=== PATIENT | female | born 1960 | race Caucasian/White ===

== ENCOUNTER → 2016-12-10 | Outpatient (CLI) | payer BC ==
--- NOTE | 2016-12-10 13:27 | CTL ---
EXAMINATION TYPE: CT Low Dose Lung DATE OF EXAM ORDERED: 12/10/2016 HISTORY: 56-year-old female for lung cancer screening CT DLP: 79.[address] CTDI: 2.4 mGy Automated exposure control for dose reduction was used. SCREENING VISIT: Baseline COMPARISON: None TECHNIQUE: Low dose computed tomography scan was performed through the chest at 1 mm thick sections a nd reconstructed images in the coronal plane at [address] DIAGNOSTIC QUALITY: Satisfactory FINDINGS: The heart is upper limits of normal in size without pericardial effusion. Aorta is normal caliber. There may be variant direct takeoff of the left vertebral artery directly fr om the aortic arch. Scattered nonenlarged mediastinal lymph nodes. No thoracic lymphadenopathy by CT size criteria. Evaluation of the lungs shows mild centrilobular emphysema. There is a tiny 3 mm right midlung pulmonary nodule axial image 142. A band of atelectasis at the left base. No consolidation or pleural effusion. Visualized upper abdomen shows no gross abnormalities. Bones: Endplate spondylosis mid to lower thoracic spine. There is a sclerotic focus within the left p osterolateral left fifth rib, axial image 68 and possibly some cortical lucencies within the right po sterior fifth rib, axial image 76. IMPRESSION: 1. Lung- RADS 2 - benign appearance or behavior; solitary 3 mm right mid lung pulmonary nodule. 2. COPD with mild emphysema. 3. Sclerotic focus within the left posterior fifth rib. In the absence of any known primary malignanc y, this most likely represents a bone island. Consider nuclear medicine whole body bone scan to surve y the entire skeleton if clinically indicated. RECOMMENDATION: CONTINUE ANNUAL SCREENING WITH LOW-DOSE CT IN 12 MONTHS.
== END | disposition home or self-care (01) ==
LOC: RADCTMAIN 12:17
PROVIDERS: ATTEND Family Medicine
DX: Z12.2 Encounter for screening for malignant neoplasm of respiratory organs (principal); R91.1 Solitary pulmonary nodule; J44.9 Chronic obstructive pulmonary disease, unspecified; Z87.891 Personal history of nicotine dependence

== ENCOUNTER → 2018-02-13 | Outpatient (CLI) | payer BC ==
--- NOTE | 2018-02-13 12:47 | CTL ---
EXAMINATION TYPE: CT Low Dose Lung DATE OF EXAM ORDERED: 02/13/2018 HISTORY: Long-term tobacco use. Lung cancer screening CT DLP: 83.[address] CTDI: 2.4 mGy Automated exposure control for dose reduction was used. SCREENING VISIT: Subsequent second study. COMPARISON: Prior low-dose lung screening CT December 10, 2016 TECHNIQUE: Low dose computed tomography scan was performed through the chest at 1 mm thick sections a nd reconstructed images in the coronal plane at [address] DIAGNOSTIC QUALITY: Satisfactory FINDINGS: LUNG NODULES: None. Stable 2 mm calcified nodule or granuloma axial image 144 LUNGS: COPD: Severity: Mild Fibrosis: Severity: Mild linear scarring left lung base Lymph nodes: None Other findings: None BILATERAL PLEURAL SPACE: Effusion: None Calcification: None Thickening: None Pneumothorax: None HEART: Heart Size: Mildly enlarged Coronary calcification: None Pericardial effusion: Trace OTHER FINDINGS: Upper abdomen: Liver is low dense consistent with diffuse fatty infiltration Bony thorax: Moderate multilevel spurring lower thoracic spine is redemonstrated. Sclerotic area left posterior lateral fifth rib remains present seen best coronal image 186 Supraclavicular region: None Other: None IMPRESSION: No new suspicious nodules or masses. FOLLOW UP CT CHEST RECOMMENDATION: Annual low-dose lung screening CT CT LUNG RAD: Lung-Rad 2 Benign Appearance or Behavior
== END | disposition home or self-care (01) ==
LOC: RADCTMAIN 10:46
PROVIDERS: ATTEND Family Medicine
DX: Z12.2 Encounter for screening for malignant neoplasm of respiratory organs (principal); F17.210 Nicotine dependence, cigarettes, uncomplicated

== ENCOUNTER → 2021-03-27 | Outpatient (CLI) | payer BC ==
--- NOTE | 2021-03-28 22:55 | PE ---
EXAMINATION TYPE: PET CT fusion skull to thigh DATE OF EXAM: 03/27/2021 COMPARISON: Low-dose lung screening CT February 13, 2018 HISTORY: Solitary pulmonary nodule, right lingular density measuring 1.6 cm. TECHNIQUE: Following the intravenous administration of 10.78 mCi of F-18 FDG, whole body images are performed from the skull base to the midthigh. Images are reviewed on the computer in the coronal, a xial, and sagittal planes. Reconstructed rotating images are created on independent workstation and reviewed on the computer. A localization and attenuation correction CT is performed in conjunction with the PET scan. Blood glucose level equals 136. SCAN: Initial Scan FINDINGS: SKULL BASE AND NECK: No abnormal hypermetabolic uptake. CHEST, MEDIASTINUM, AND HILAR REGION: Mild linear scarring slightly thickened in the lingula and left lower lobe redemonstrated. No abnormal hypermetabolic uptake ABDOMEN AND PELVIS: Nonspecific diffuse bowel uptake greatest throughout the colon. Normal excretion. No adrenal masses. No additional areas of increased hypermetabolic uptake OSSEOUS STRUCTURES: Mild hypermetabolic uptake posterior left rib axial image 83, max SUV 2.76. This corresponds to subtle sclerotic round 1.0 cm lesion in the fifth rib on CT. OTHER CT: Mild cardiomegaly with prominent pulmonary arteries suggesting underlying pulmonary hyperte nsion. Low lung volumes. Dependent small gallstones in gallbladder. [id number] generalized fat replaced atrophy of the p ancreas. Sigmoid colonic diverticulosis. IMPRESSION: No suspicious hypermetabolic uptake in the lungs to suggest primary lung malignancy. Mild hypermetabolic uptake corresponding to 1.0 cm round sclerotic focus left posterior fifth rib could r eflect primary bone lesion or osseous metastatic lesion.
== END | disposition home or self-care (01) ==
LOC: RADPETMAIN 15:35
PROVIDERS: ATTEND Family Medicine
DX: R91.8 Other nonspecific abnormal finding of lung field (principal)
CPT/HCPCS: 78815; A9552

== ENCOUNTER → 2022-04-15 | Outpatient (CLI) | payer MEDICARE ==
--- NOTE | 2022-04-15 17:07 | CTL ---
EXAMINATION TYPE: CT Low Dose Lung DATE OF EXAM: 04/15/2022 4:44 PM CLINICAL INDICATION:Female, 61 years old with history of Z87.891 personal hx nicotine dependence; Per mick hx tobacco use, 1 pk/dayx45 years. Not reporting any concerns , history of tobacco use. COMPARISON: CT 02/13/2018, PET/CT 03/27/2021 TECHNIQUE: Multiple axial non-contrast scans were obtained from approximately the lung apices through the upper abdomen. Coronal and sagittal reformatted images were obtained. Low dose technique was uti lized. CT DLP: 91.50 mGycm, Automated exposure control for dose reduction was used. CT Contrast: Contrast used: None Oral contrast used: None FINDINGS: ======== Lack of intravenous contrast and low dose technique limits the evaluation of the vascular and soft ti ssue structures. LUNGS: No evidence of emphysema or pulmonary fibrosis. No evidence of focal consolidation, pneumothor ax or pleural effusion. Scattered streaky scarring/atelectasis. Nodules: RUL: None. RML: None. RLL: None. RAFAEL: None. LLL: None. AIRWAY: Patent and unremarkable. HEART: The heart is mildly enlarged for size.e MEDIASTINUM: No gross evidence of adenopathy. VASCULATURE: No aortic aneurysm. MUSCULOSKELETAL: There remains a sclerotic focus measuring 13 mm in the left posterior rib #5 is stab le from 03/27/2021 PET/CT. SOFT TISSUES/LYMPH NODES: Unremarkable. LOWER NECK: No significant findings. UPPER ABDOMEN: Diffuse low-attenuation to the liver parenchyma. IMPRESSION: 1. No clinically significant pulmonary nodules. Stable left lung streaky atelectasis/scarring. 2. Stable size of left posterior rib sclerotic lesion now measuring 13 mm. Given stability over a yea r an indolent etiologies is favored. 3. Hepatic steatosis. CT LUNG RAD AND CT CHEST RECOMMENDATION: Lung-Rad 1 Negative: Continue annual screening with LDCT in 12 months. S Modifier (other clinically significant findings): None Recommend smoking cessation (if current smoker), or continuation of smoking cessation (if prior smoke r). Annual screening for lung cancer with low-dose computed tomography is recommended in adults ages 55 to 77 years who have a 30 pack-year smoking history and currently smoke or have quit within the pa st 15 years. Screening should be discontinued once a person has not smoked for 15 years or develops a health problem that substantially limits life expectancy or the ability or willingness to have curat opal lung surgery. Lung rads 2021 [email or web address]
== END | disposition home or self-care (01) ==
LOC: RADCTMAIN 16:09
PROVIDERS: ATTEND Family Medicine
DX: Z12.2 Encounter for screening for malignant neoplasm of respiratory organs (principal); K76.0 Fatty (change of) liver, not elsewhere classified; M89.8X8 Other specified disorders of bone, other site; Z87.891 Personal history of nicotine dependence
CPT/HCPCS: 71271

== ENCOUNTER → 2022-12-28 | Outpatient (CLI) | payer MEDICARE ==
--- NOTE | 2022-12-28 08:07 | US ---
EXAMINATION TYPE: US kidneys/renal and bladder DATE OF EXAM: 12/28/2022 COMPARISON: US 2022 CLINICAL INDICATION: Female, 62 years old with history of N18.1 CHRONIC KIDNEY DISEASE, STAGE 1; EXAM MEASUREMENTS: Right Kidney: 10.9 x 5.2 x 5.7 cm Left Kidney: 12.3 x 5.5 x 5.1 cm Right Kidney: no hydronephrosis or masses seen Left Kidney: no hydronephrosis or masses seen Bladder: wnl Bilateral Jets seen: no There is no evidence for hydronephrosis at this point in time. No nephrolithiasis is seen. No tristan s are identified. The urinary bladder is anechoic. Bilateral ureteral jets are seen. IMPRESSION: No discrete abnormality appreciated.
[2022-12-28 11:29] LABS: HCT 40.4 % (37.2-46.3); HGB 12.7 d/dL (12.0-15.0); MCH 29.8 pg (27.0-32.0); MCHC 31.4 d/dL (32.0-37.0); MCV 94.8 FL (80.0-97.0); Mean Platelet Volume 10.2 FL (9.5-12.2); NRBC Per 100 WBC 0 X 10*3/uL (0.00-0.01); Platelet Count 300 X 10*3/uL (140-440); RBC 4.26 X 10*6/uL (4.10-5.20); RDW 13.2 % (11.5-14.5); WBC 10.39 X 10*3/uL (4.50-10.00)
[2022-12-28 12:04] LABS: ALT 25 U/L (8-44); AST 25 U/L (13-35); Albumin 4.7 d/dL (3.8-4.9); Albumin/Globulin Ratio 2.14 Ratio (1.60-3.17); Alkaline Phosphatase 65 U/L (41-126); BUN/Creat Ratio 19.67 Ratio (12.00-20.00); Blood Urea Nitrogen 11.8 mg/dL (9.0-27.0); Calcium 10.2 mg/dL (8.7-10.3); Carbon Dioxide 27.1 mmol/L (21.6-31.8); Chloride 99 mmol/L (96-109); Ferritin 56.1 ng/mL (10.0-291.0); Globulin 2.2 d/dL (1.6-3.3); Glucose 210 mg/dL (70-110); Iron 77 UG/DL (50-170); Magnesium 1.6 mg/dL (1.5-2.4); Phosphorus 4.5 mg/dL (2.4-5.1); Potassium 4.4 mmol/L (3.5-5.5); Sodium 140 mmol/L (135-145); Total Bilirubin 0.3 mg/dL (0.3-1.2); Total Iron Binding Capacity 435 UG/DL (228-460); Total Protein 6.9 d/dL (6.2-8.2); Uric Acid 4.7 mg/dL (2.9-7.7)
[2022-12-28 14:04] LABS: Appearance,Urine Turbid (Clear); Bacteria,Urine None Seen (None Seen); Bilirubin,Urine Negative (Negative); Blood,Urine Negative (Negative); Color,Urine Yellow (Yellow); Ketones,Urine Negative (Negative); Nitrite,Urine Negative (Negative); PH, Urine 5.5; Specific Gravity,Urine 1.014 (1.001-1.030); Uric Acid Crystals,Urine Present; Urobilinogen,Urine 0.2
== END | disposition home or self-care (01) ==
LOC: RADUSWWP 07:28
PROVIDERS: ATTEND Internal Medicine Nephrology
DX: N18.1 Chronic kidney disease, stage 1 (principal)
CPT/HCPCS: 76770; 80053; 81001; 82043; 82306; 82570; 82728; 83540; 83550; 83735; 83970; 84100; 84550; 85027

== ENCOUNTER → 2023-04-18 | Outpatient (CLI) | payer MEDICARE ==
--- NOTE | 2023-04-22 12:50 | CTL ---
EXAMINATION TYPE: CT Low Dose Lung DATE OF EXAM: 04/18/2023 12:38 PM CLINICAL INDICATION:Female, 62 years old with history of Z87.891 personal hx of tobacco use; personal tobacco use , history of tobacco use. COMPARISON: 04/15/2022 CT Low Dose Lung and earlier exams TECHNIQUE: CT scan of the chest obtained without contrast from approximately the lung apices through the upper abdomen. Axial, coronal and sagittal reformatted images were obtained. Low dose technique w as utilized for nodule screening purposes. CT DLP: 87.3 mGycm, Automated exposure control for dose reduction was used. CT Contrast: Contrast used: None Oral contrast used: None FINDINGS: Lack of intravenous contrast and low dose technique limits the evaluation of the vascular and soft ti ssue structures. LUNGS: Bandlike areas of scarring involving the left upper and lower lobes, remain unchanged. No evid ence of focal consolidation, pneumothorax or pleural effusion. No significant emphysema changes. Nodules: RUL: None. RML: None. RLL: None. RAFAEL: None. LLL: None. AIRWAY: Patent and unremarkable. LOWER NECK: No significant findings.. HEART: Mild/moderate cardiomegaly. No pericardial effusion.. Mild coronary artery calcifications. MEDIASTINUM: No gross evidence of adenopathy. VASCULATURE: Mild atherosclerotic calcifications along the aortic arch and its branches. No aortic a neurysm. SOFT TISSUES/LYMPH NODES: Unremarkable soft tissues. No axillary adenopathy. UPPER ABDOMEN: There is likely at least mild hepatic steatosis. Mild calcifications of the abdominal aorta. MUSCULOSKELETAL: Osseous structures appear unchanged. Continued stable subtle 1.5 x 0.8 cm slightly s clerotic ovoid focus in the posterior left fifth rib with narrow zone of transition suggesting nonagg ressive lesion. No new or destructive lesion is shown. Moderate disc degeneration changes are present throughout the thoracolumbar spine. IMPRESSION: 1. No clinically significant pulmonary nodules. 2. Unchanged bandlike scarring in the left upper and lower lobes. 3. Continued stable left fifth rib lesion, nonaggressive appearance and behavior. CT LUNG RAD AND CT CHEST RECOMMENDATION: Lung-Rad 1 Negative: Continue annual screening with LDCT in 12 months. S Modifier (other clinically significant findings): None Recommend smoking cessation (if current smoker), or continuation of smoking cessation (if prior smoke r). Annual screening for lung cancer with low-dose computed tomography is recommended in adults ages 55 to 77 years who have a 30 pack-year smoking history and currently smoke or have quit within the pa st 15 years. Screening should be discontinued once a person has not smoked for 15 years or develops a health problem that substantially limits life expectancy or the ability or willingness to have curat opal lung surgery. Lung rads 2021 [email or web address]
== END | disposition home or self-care (01) ==
LOC: RADCTMAIN 12:02
PROVIDERS: ATTEND Family Medicine
DX: Z12.2 Encounter for screening for malignant neoplasm of respiratory organs (principal); J98.4 Other disorders of lung; M89.8X8 Other specified disorders of bone, other site; Z87.891 Personal history of nicotine dependence
CPT/HCPCS: 71271

== ENCOUNTER → 2023-10-20 | Outpatient (CLI) | payer MEDICARE ==
[2023-10-20 14:18] LABS: HCT 42.6 % (37.2-46.3); HGB 13.1 g/dL (12.0-15.0); MCH 29.4 pg (27.0-32.0); MCHC 30.8 g/dL (32.0-37.0); MCV 95.7 FL (80.0-97.0); Mean Platelet Volume 10.5 FL (9.5-12.2); NRBC Per 100 WBC 0 X 10*3/uL (0.00-0.01); Platelet Count 328 X 10*3/uL (140-440); RBC 4.45 X 10*6/uL (4.10-5.20); RDW 12.5 % (11.5-14.5); WBC 11.15 X 10*3/uL (4.50-10.00)
[2023-10-20 14:57] LABS: % Iron Saturation 18.53 (12.00-45.00); ALT 20 U/L (8-44); AST 24 U/L (13-35); Albumin 4.7 g/dL (3.8-4.9); Albumin/Globulin Ratio 2.04 Ratio (1.60-3.17); Alkaline Phosphatase 67 U/L (41-126); Blood Urea Nitrogen 11.2 mg/dL (9.0-27.0); Calcium 9.6 mg/dL (8.7-10.3); Carbon Dioxide 23.2 mmol/L (21.6-31.8); Chloride 102 mmol/L (96-109); Ferritin 50.5 ng/mL (10.0-291.0); Globulin 2.3 g/dL (1.6-3.3); Glucose 174 mg/dL (70-110); Iron 88 UG/DL (50-170); Magnesium 1.7 mg/dL (1.5-2.4); Potassium 4.4 mmol/L (3.5-5.5); Sodium 141 mmol/L (135-145); Total Bilirubin 0.3 mg/dL (0.3-1.2); Total Iron Binding Capacity 475 UG/DL (228-460); Uric Acid 4.3 mg/dL (2.9-7.7)
[2023-10-20 19:02] LABS: Appearance,Urine Clear (Clear); Bilirubin,Urine Negative (Negative); Blood,Urine Negative (Negative); Color,Urine Yellow (Yellow); Ketones,Urine Negative (Negative); Nitrite,Urine Negative (Negative); Specific Gravity,Urine 1.022 (1.001-1.030); Urobilinogen,Urine 0.2 E.U./DL
[2023-10-20 20:45] LABS: Urine Creatinine 96.8 mg/dL (28.0-217.0)
== END | disposition home or self-care (01) ==
LOC: LABWHC1 09:00
PROVIDERS: ATTEND Internal Medicine
DX: N18.1 Chronic kidney disease, stage 1 (principal)
CPT/HCPCS: 36415; 80053; 81003; 82043; 82306; 82570; 82728; 83540; 83550; 83735; 83970; 84100; 84550; 85027

== ENCOUNTER → 2024-01-03 | Outpatient (CLI) | payer MEDICARE ==
[2024-01-04 00:17] LABS: ALT 20 U/L (8-44); AST 18 U/L (13-35); Albumin 4.9 g/dL (3.8-4.9); Albumin/Globulin Ratio 2.04 Ratio (1.60-3.17); Alkaline Phosphatase 69 U/L (41-126); Blood Urea Nitrogen 13.1 mg/dL (9.0-27.0); Calcium 10.3 mg/dL (8.7-10.3); Carbon Dioxide 23.5 mmol/L (21.6-31.8); Chloride 100 mmol/L (96-109); Globulin 2.4 g/dL (1.6-3.3); Glucose 199 mg/dL (70-110); Potassium 5.3 mmol/L (3.5-5.5); Sodium 141 mmol/L (135-145); Total Bilirubin 0.2 mg/dL (0.3-1.2); Total Protein 7.3 g/dL (6.2-8.2)
[2024-01-04 03:33] LABS: NT-Pro-B-Type Natriuretic Pept <36 pg/mL (0-125)
== END | disposition home or self-care (01) ==
LOC: LABWHC1 12:44
PROVIDERS: ATTEND Student in an Organized Health Care Education/Training Program
DX: I50.9 Heart failure, unspecified (principal); R79.89 Other specified abnormal findings of blood chemistry
CPT/HCPCS: 36415; 80053; 83880

== ENCOUNTER → 2024-04-19 | Outpatient (CLI) | payer MEDICARE ==
--- NOTE | 2024-04-19 11:44 | CTL ---
EXAMINATION TYPE: CT Low Dose Lung DATE OF EXAM ORDERED: 04/19/2024 COMPARISON: 04/18/2023 CLINICAL INDICATION: Female, 63 years old with history of Z12.2 Screening; PHH, Personal hx nicotine dependence, former smoker quit 1.5 years ago, was 1 ppd x 53 years., Lung cancer screening, History o f Smoking/tobacco use. TECHNIQUE: Low dose computed tomography scan was performed through the chest at 1 mm thick sections a nd reconstructed images in multiple planes at 1 mm and [address] DLP: 4.[address] CTDI: 153.80 mGy Automated exposure control for dose reduction was used. CT DIAGNOSTIC QUALITY: Satisfactory FINDINGS: There are few stable scattered micronodules. There is stable mild interstitial scarring in the left u pper and lower lobes. There is no airspace consolidation. There is no mediastinal, hilar or axillary adenopathy. The heart is moderately enlarged. There is no pleural effusion, pleural thickening or pneumothorax. No focal osseous lesions are seen. Limited scans the upper abdomen reveals no gross abnormality IMPRESSION: 1. Lung rads Category 1 negative. Continue routine screening at yearly intervals. 2. No acute cardiopulmonary disease. 3. Stable moderate cardiac enlargement [facility], , 04/19/2024 11:41 AM
== END | disposition home or self-care (01) ==
LOC: RADCTMAIN 10:42
PROVIDERS: ATTEND Family Medicine
DX: Z12.2 Encounter for screening for malignant neoplasm of respiratory organs (principal); Z87.891 Personal history of nicotine dependence; I51.7 Cardiomegaly
CPT/HCPCS: 71271